=== PATIENT | female | born 1970 | race Hispanic/Latino ===

== ENCOUNTER 2023-02-24 14:31 | Outpatient (CLI) | payer BC | END 2023-02-24 14:32 | disposition home or self-care (01) | LOC: CSHMAMMO 14:31 | PROVIDERS: ATTEND Family Medicine | DX: Z12.31 Encounter for screening mammogram for malignant neoplasm of breast (principal) | CPT/HCPCS: 77063; 77067 ==

== ENCOUNTER 2023-05-02 09:17 | Outpatient (CLI) | payer BC | END 2023-05-02 09:18 | disposition home or self-care (01) | LOC: CSHLAB 09:17 | PROVIDERS: ATTEND Obstetrics & Gynecology | DX: Z01.818 Encounter for other preprocedural examination (principal); N95.0 Postmenopausal bleeding; Z97.5 Presence of (intrauterine) contraceptive device | CPT/HCPCS: 85027; 86850; 86900; 86901; 93005; 93010 ==